=== PATIENT | male | born 1945 | race Caucasian/White ===

== ENCOUNTER → 2018-05-24 | Outpatient (CLI) | payer OTHER ==
[~2018-05-24] MED LIST: ASPIR 8181 MG PO; AUGMENTIN 875875 MG PO; CRESTOR20 MG PO; HYDROCODONE-AP1 EAC6 PO; LOPRESSOR25 PO; SENOKOT-S1 TA1 PO; UNICOMPLEX M TA1 TA1 PO; VITAMINC500 PO
== END ==
LOC: M.RAD 14:05
DX: J43.1 Panlobular emphysema (principal); I10 Essential (primary) hypertension

== ENCOUNTER 2019-04-29 18:34 | Emergency (ER) | payer OTHER ==
[~2019-04-29] VITALS: Ht 170.2 cm; Wt 86.2 kg
[2019-04-29] MEDS ORDERED: MIRALAX17 G1 PO (18:53)
[2019-04-29] MEDS ORDERED: ADULT ASPIRIN R81 MG PO (18:54)
[2019-04-29 19:24] LABS: ABSOLUTE BASOPHILS 0.1 thou/uL (0.0-0.2); ABSOLUTE EOSINOPHILS 0.8 thou/uL (0.0-0.7); ABSOLUTE LYMPHOCYTES 1.9 thou/uL (0.8-5.3); ABSOLUTE MONOCYTES 1.4 thou/uL (0.0-1.2); ABSOLUTE NEUTROPHILS 4.9 thou/uL (1.6-8.1); EOSINOPHILS 8.4 %; HEMATOCRIT 50.2 % (42.0-52.0); LYMPHOCYTES 21.1 %; MCH 32.1 pg (26.0-34.0); MCHC 33.9 g/dL (28.0-37.0); MCV 94.6 fL (80.0-100.0); MONOCYTES 15.3 %; MPV 8.4 fl. (7.2-11.1); NUCLEATED RBCS 0 /100WBC; PLATELET COUNT* 224 thou/uL (150-400); POLYS 54.2 %; RDW-CV 14.3 % (10.5-14.5); WBC 9.1 thou/uL (4.0-11.0)
[2019-04-29 19:32] LABS: ANION GAP 8 mmol/L (7-16); BUN 8 mg/dL (7-18); CALCIUM 9.1 mg/dL (8.5-10.1); CHLORIDE 102 mmol/L (98-107); CO2 27 mmol/L (21-32); CREATININE 0.9 mg/dL (0.6-1.3); GLUCOSE 102 mg/dL (70-99); POTASSIUM 4.2 mmol/L (3.5-5.1); SODIUM 137 mmol/L (136-145)
[2019-04-29 19:34] LABS: APTT 26.1 Seconds (25.0-31.3); PROTIME 10.7 Seconds (9.20-11.50)
[2019-04-29 19:45] LABS: ALBUMIN 3.9 g/dL (3.4-5.0); ALKALINE PHOSPHATASE 78 U/L (46-116); CK-MB MASS 6.4 ng/mL (<0.5-3.6); LIPASE 134 U/L (73-393); MAGNESIUM 2.1 mg/dL (1.8-2.4); NT-PRO BRAIN NAT PEPTIDE 681 pg/mL (<300); SGOT 21 U/L (15-37); SGPT 27 U/L (30-65); TOTAL BILIRUBIN 0.3 mg/dL (<0.1-1.0); TOTAL PROTEIN 7.4 g/dL (6.4-8.2); TROPONIN-I LEVEL <0.06 ng/mL (<0.06)
[2019-04-29] MEDS ORDERED: ZPAK PO (20:13)
[2019-04-29] MEDS ORDERED: MEDROLDOSEPACK PO (20:13)
[2019-04-29 20:35] VITALS: BP 150/90
--- NOTE | 2019-04-30 10:25 | EKG ---
[place] [address] ELECTROCARDIOGRAM REPORT Name: INÉS ANDRADE [id number] Admission: 04/29/19 Attend Phys: Discharge: 04/29/19 Date of : 45 Report #: [id number] THIS REPORT FOR: //name// [facility] ED Test Date: 2019-04-29 Test Time: 18:49:20 Pat Name: INÉS ANDRADE Department: Room: Gender: M [employer]: : 1945 Requested By: Edy Hayes Order Number: [id number] MD: Mohan Hammond Measurements Intervals [place] Rate: 77 P: -3 SD: 131 QRS: -60 QRSD: 136 T: 97 QT: 425 QTc: 482 Interpretive Statements Sinus rhythm Probable left atrial enlargement 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
== END 2019-04-29 20:35 | disposition home or self-care (01) ==
LOC: M.ERS 18:34
PROVIDERS: Emergency Medicine
DX: R07.89 Other chest pain (principal); I10 Essential (primary) hypertension; E78.00 Pure hypercholesterolemia, unspecified; Z91.041 Radiographic dye allergy status